=== PATIENT | female | born 1965 | race Caucasian/White ===

== ENCOUNTER 2017-01-16 10:17 | Emergency (ER) | payer MEDICARE, OTHER ==
--- NOTE | 2017-01-16 11:55 | RAD ---
Exam: Three-view right toes COMPARISON: None INDICATION: Right fourth toe pain, care facility noticed patient limping. FINDINGS: AP, lateral and oblique views of the right fourth toe were obtained. Soft tissue swelling is noted about the fourth toe. There is diffuse bony osteopenia. Alignment is within normal limits. There is a subtle lucency along the lateral aspect of the distal transverse fourth toe only seen on the oblique view. Nondisplaced fracture cannot be excluded in this location. Note additional concern for fracture is identified. IMPRESSION: Soft tissue swelling within the fourth toe. No definite fracture is identified although nondisplaced fracture within the distal phalanx of the fourth toe cannot be completely excluded.
== END 2017-01-16 12:55 | disposition home or self-care (01) ==
LOC: ED 10:17
DX: L02.611 Cutaneous abscess of right foot (principal); E03.9 Hypothyroidism, unspecified

== ENCOUNTER 2017-01-24 10:45 | Emergency (ER) | payer MEDICARE, OTHER ==
[2017-01-24] MEDS ORDERED: SULFAMETHOXAZOLE 800 MG/TRIMETHOPRIM 160 MG TABLET ONE (11:20)
[2017-01-24] MEDS ORDERED: CEPHALEXIN 500 MG CAPSULE ONE (11:20)
== END 2017-01-24 11:50 | disposition home or self-care (01) ==
LOC: ED 10:45
DX: L03.031 Cellulitis of right toe (principal); E03.9 Hypothyroidism, unspecified; F03.90 Unspecified dementia, unspecified severity, without behavioral disturbance, psychotic disturbance, mood disturbance, and anxiety; Q90.9 Down syndrome, unspecified
CPT/HCPCS: 99283; 99282; A9270 ×2